=== PATIENT | male | born 1980 | race Caucasian/White ===

== ENCOUNTER 2016-08-17 11:10 | Emergency (ER) | payer OTHER ==
[~2016-08-17] VITALS: Ht 188 cm; Wt 99.8 kg
[2016-08-17 11:11] VITALS: BP 140/71
[2016-08-17] MEDS ORDERED: cefTRIAXone SOD 250 MG VIAL (J0696) IM ONE (12:30)
[2016-08-17] MEDS ORDERED: AZITHROMYCIN 250 MG TAB PO ONE (12:30)
[2016-08-17] MEDS ORDERED: CLIN1CAP5 PO (12:32)
== END 2016-08-17 13:11 | disposition home or self-care (01) ==
LOC: M ED 12:36
DX: K40.90 Unilateral inguinal hernia, without obstruction or gangrene, not specified as recurrent (principal); L08.9 Local infection of the skin and subcutaneous tissue, unspecified; F17.200 Nicotine dependence, unspecified, uncomplicated

== ENCOUNTER 2020-08-04 07:54 | Emergency (ER) | payer OTHER ==
[~2020-08-04] VITALS: Ht 188 cm; Wt 102.6 kg
[~2020-08-04 07:54] MED LIST: CLIN150C15 PO
[2020-08-04 08:01] VITALS: BP 133/68
== END 2020-08-04 09:57 | disposition left against medical advice (07) ==
LOC: M ED 07:54
DX: Z53.21 Procedure and treatment not carried out due to patient leaving prior to being seen by health care provider (principal)

== ENCOUNTER 2021-11-17 12:38 | Emergency (ER) | payer OTHER ==
[~2021-11-17] VITALS: Ht 188 cm; Wt 108.7 kg
[~2021-11-17 12:38] MED LIST changes: -CLIN150C15 PO; +CLIN150C17 PO
[2021-11-17 12:39] VITALS: BP 117/68
== END 2021-11-17 15:30 | disposition left against medical advice (07) ==
LOC: M ED 12:38
DX: Z53.29 Procedure and treatment not carried out because of patient's decision for other reasons (principal)

== ENCOUNTER 2021-11-28 14:34 | Emergency (ER) | payer OTHER ==
[~2021-11-28] VITALS: Ht 188 cm; Wt 107.3 kg
[2021-11-28 14:35] VITALS: BP 127/77
== END 2021-11-28 22:39 | disposition home or self-care (01) ==
LOC: M ED 14:34
DX: S63.602A Unspecified sprain of left thumb, initial encounter (principal); S60.012A Contusion of left thumb without damage to nail, initial encounter; W01.0XXA Fall on same level from slipping, tripping and stumbling without subsequent striking against object, initial encounter; Y92.830 Public park as the place of occurrence of the external cause; F17.200 Nicotine dependence, unspecified, uncomplicated

== ENCOUNTER → 2023-04-04 | Outpatient (CLI) | payer OTHER | LOC: M WUC 12:23 | PROVIDERS: ATTEND Nurse Practitioner Family | DX: M54.50 Low back pain, unspecified (principal) ==

== ENCOUNTER 2024-11-17 13:29 | Observation (INO) | payer OTHER ==
[~2024-11-17] VITALS: Ht 188 cm; Wt 105.0 kg
[2024-11-17] MEDS ORDERED: ISOVUE-370 76% 100 ML VIAL As Ordered ONE (13:49)
[2024-11-17 13:52] LABS: VENOUS BASE EXCESS -0.9 (-2.0-2.0); VENOUS HCO3 21.9 MMOL/L (23.0-27.0); VENOUS O2 SATURATION 96.0 % (60.0-80.0); VENOUS PARTIAL PRESSURE CO2 32.1 mmHg (38.0-50.0); VENOUS PARTIAL PRESSURE O2 73.0 mmHg (30.0-50.0); VENOUS PH 7.452 UNITS (7.330-7.430); VENOUS STANDARD HCO3 23.7 MMOL/L; VENOUS TOTAL CO2 22.9 MMOL/L (24.0-28.0)
[2024-11-17 13:59] LABS: BASO # 0.1 10^3/uL (0.0-0.2); BASO % 0.5 % (0.0-1.0); EOS # 0.0 10^3/uL (0.0-0.5); EOS % 0.2 % (0.0-3.0); LYMPH # 1.4 10^3/uL (1.5-5.0); LYMPH % 12.2 % (24.0-44.0); MONO # 0.5 10^3/uL (0.0-0.8); MONO % 4.7 % (2.0-8.0); NEUTROPHILS # 9.1 10^3/uL (1.5-8.5); NEUTROPHILS % 82.0 % (36.0-66.0); PLATELET COUNT, AUTOMATED 192 10^3/uL (150-450)
[2024-11-17 14:28] LABS: CK-MB VALUE MASS 3.0 NG/ML (<3.6); ETHYL ALCOHOL (ETHANOL) < 0.003 % (0.000-0.010)
[2024-11-17 14:30] LABS: ALT/SGPT 34 U/L (7.0-40); AST/SGOT 30 U/L (<34); CALCIUM LEVEL 10.2 MG/DL (8.5-10.1); CARBON DIOXIDE LEVEL 21 MMOL/L (20-31); CHLORIDE LEVEL 108 MMOL/L (98-107); CREATININE FOR GFR 1.26 MG/DL (0.70-1.30); GLOMERULAR FILTRATION RATE 73.5 (>60); MAGNESIUM LEVEL 2.2 MG/DL (1.8-2.4); POTASSIUM SERUM 5.0 MMOL/L (3.5-5.1); SODIUM LEVEL 141 MMOL/L (136-145)
[2024-11-17 14:32] LABS: CPK CREATINE PHOSPHOKINASE 235 U/L (46-171); MB/CK RELATIVE INDEX 1.27 (< OR =4)
[2024-11-17 15:06] LABS: APPEARANCE, URINE CLEAR (CLEAR); BACTERIA, URINE AUTO NEGATIVE (NEGATIVE); BILIRUBIN, URINE AUTO NEGATIVE (NEGATIVE); BLOOD, URINE BLOOD NEGATIVE (NEGATIVE); GLUCOSE, URINE (UA) AUTO 1+ mg/dL (NEGATIVE); KETONE, URINE AUTO NEGATIVE (NEGATIVE); LEUKOCYTE ESTERASE, URINE AUTO NEGATIVE (NEGATIVE); MUCUS, URINE SMALL (NEGATIVE); NITRITE, URINE AUTO NEGATIVE (NEGATIVE); PROTEIN, URINE AUTO 1+ mg/dL (NEGATIVE); RBC, URINE AUTO 2 /HPF (0-3); SPECIFIC GRAVITY URINE AUTO 1.049 (1.002-1.035); SQUAMOUS EPITHELIAL CELL UR AU 0 /HPF (0-6); TRANSITIONAL EPITHELIAL AUTO <1 /HPF; UROBILINOGEN, URINE AUTO 0.2 mg/dL (0.0-2.0); WBC, URINE AUTO 1 /HPF (0-3)
[2024-11-17 15:13] LABS: PHENCYCLIDINE URINE NEGATIVE (NEGATIVE)
[2024-11-17 15:14] LABS: AMPHETAMINES LEVEL URINE NEGATIVE (NEGATIVE); BARBITURATES URINE NEGATIVE (NEGATIVE); BENZODIAZEPINES URINE NEGATIVE (NEGATIVE); COCAINE METABOLITE URINE NEGATIVE (NEGATIVE); METHADONE URINE NEGATIVE (NEGATIVE); OPIATES URINE NEGATIVE (NEGATIVE)
[2024-11-17 15:17] LABS: CANNABINOIDS URINE POSITIVE (NEGATIVE)
[2024-11-17] MEDS: NS (Normal Saline) 0.9% 1,000 ML IV ONE (15:17)
[2024-11-17] MEDS: MORPHINE 2 MG/ML 1 ML VIAL IV PRN (15:17)
[2024-11-17] MEDS: ONDANSETRON 4MG 2ML VIAL IV ONE (15:49)
[2024-11-17 16:07] LABS: CK-MB VALUE MASS 2.7 NG/ML (<3.6)
[2024-11-17 16:12] LABS: CPK CREATINE PHOSPHOKINASE 249.0 U/L (46-171); MB/CK RELATIVE INDEX 1.08 (< OR =4)
[2024-11-17 17:43] LABS: CK-MB VALUE MASS 2.9 NG/ML (<3.6)
[2024-11-17 17:46] LABS: CPK CREATINE PHOSPHOKINASE 292.0 U/L (46-171); MB/CK RELATIVE INDEX 0.99 (< OR =4)
[2024-11-17] MEDS: VALPROATE SOD INJ 500 MG in D5W 50 ML IV ONE (19:03)
[2024-11-17] MEDS: NICOTINE 21 MG/24 HR 1 EA TRANSDERMAL TD ONE (19:23)
[2024-11-17] MEDS ORDERED: HOME MED LIST COMPLETE! XX SCH (20:30)
[2024-11-17] MEDS ORDERED: NICOTINE POLACRILEX 2 MG GUM PO PRN (20:40)
[2024-11-17 20:54] VITALS: BP 141/69; TEMP 98.9; O2SAT 97
[2024-11-17] MEDS: INSULIN LISPRO (NovoLOG) PER UNIT SC SCH (21:00)
[2024-11-17] MEDS ORDERED: GLUCOSE 4 GM CHEW PO PRN (21:05)
[2024-11-17] MEDS ORDERED: GLUCAGON INJ 1 MG VIAL SC PRN (21:05)
[2024-11-17] MEDS ORDERED: DEXTROSE 50% 50 ML SYRINGE IV PRN (21:05)
[2024-11-17 21:11] LABS: CHOLESTEROL LEVEL 110.0 MG/DL (<200); CHOLESTEROL RISK RATIO 2.59 (<5); LDL CHOLESTEROL 54.2 MG/DL (<100); NON-HDL-C 67.6 MG/DL; TRIGLYCERIDES LEVEL 67.0 MG/DL (<150)
[2024-11-17 21:33] LABS: ESTIMATED AVERAGE GLUCOSE 105.0 MG/DL (60-110)
[2024-11-17 21:37] LABS: CREATININE, URINE 182.3 MG/DL; MALB URINE SIEMENS 83.0 MG/L; MAU/CREAT RATIO 45.5 MCG/MG (0.0-30.0)
[2024-11-17] MEDS: LR 1,000 ML IV SCH (21:47)
[2024-11-17] MEDS: ACETAMINOPHEN 325 MG TAB PO PRN (22:12)
[2024-11-17] MEDS: VALPROIC ACID 250MG CAP PO SCH (22:23)
[2024-11-18] VITALS: BP 117/53; TEMP 99.1; O2SAT 95
[2024-11-18 04:00] VITALS: BP 108/57; TEMP 98.4; O2SAT 96
[2024-11-18 07:29] LABS: PLATELET COUNT, AUTOMATED 147 10^3/uL (150-450)
[2024-11-18] MEDS ORDERED: INSULIN LISPRO (NovoLOG) PER UNIT SC SCH (07:30)
[2024-11-18 07:54] VITALS: BP 114/65; TEMP 98.4; O2SAT 95
[2024-11-18 07:55] LABS: ALT/SGPT 28.0 U/L (7.0-40); AST/SGOT 34.0 U/L (<34); CALCIUM LEVEL 8.6 MG/DL (8.5-10.1); CARBON DIOXIDE LEVEL 26.0 MMOL/L (20-31); CHLORIDE LEVEL 110.0 MMOL/L (98-107); CREATININE FOR GFR 1.13 MG/DL (0.70-1.30); GLOMERULAR FILTRATION RATE 83.7 (>60); POTASSIUM SERUM 3.9 MMOL/L (3.5-5.1); SODIUM LEVEL 144.0 MMOL/L (136-145)
[2024-11-18] MEDS: NICOTINE 21 MG/24 HR 1 EA TRANSDERMAL TD SCH (09:14)
[2024-11-18] MEDS: HEPARIN SOD 5000 UNITS/ML 1 ML VIAL/SYRINGE SC SCH (09:14)
[2024-11-18] MEDS ORDERED: VALP1CAP2 PO (11:51)
[2024-11-22 08:17] LABS: METANEPHRINE PLASMA 33 pg/mL (<=57); NORMETANEPHRINE PLASMA 41 pg/mL (<=148); TOTAL FREE 74 pg/mL (<=205)
== END 2024-11-18 12:47 | disposition home or self-care (01) ==
LOC: M ED 13:29 → EDBD 13:29 → M ED INP 13:30 → M MS4PR 20:50
PROVIDERS: ADMIT Student in an Organized Health Care Education/Training Program; ATTEND Student in an Organized Health Care Education/Training Program
DX: S90.511A Abrasion, right ankle, initial encounter (principal); V47.5XXA Car driver injured in collision with fixed or stationary object in traffic accident, initial encounter; Y92.410 Unspecified street and highway as the place of occurrence of the external cause; R74.02 Elevation of levels of lactic acid dehydrogenase [LDH]; R74.8 Abnormal levels of other serum enzymes; R25.8 Other abnormal involuntary movements; F17.210 Nicotine dependence, cigarettes, uncomplicated; I10 Essential (primary) hypertension; R73.01 Impaired fasting glucose; R79.89 Other specified abnormal findings of blood chemistry; D72.829 Elevated white blood cell count, unspecified
CPT/HCPCS: 36415; 70450; 70551; 71045; 71275; 72125; 74177; 80047; 80048; 80053; 80061; 80076; 80307; 81001; 82043; 82077; 82330; 82550; 82553; 82803; 83036; 83605; 83690; 83735; 83835; 84443; 84484; 85025; 85027; 93005; 93041; 94760; 96361; 96365; 96372; 96375; 99285; J2405; Q9967

== ENCOUNTER 2024-11-27 17:28 | Emergency (ER) | payer OTHER ==
[~2024-11-27] VITALS: Ht 188 cm; Wt 105.1 kg
[~2024-11-27 17:28] MED LIST changes: +VALP1CAP2 PO
[2024-11-27 19:44] VITALS: BP 150/81; TEMP 98.3; O2SAT 98
[2024-11-27] MEDS ORDERED: VALP1CAP2 PO (20:50)
[2024-11-27] MEDS: DIVALPROEX 500 MG TAB PO ONE (20:58)
== END 2024-11-27 20:59 | disposition home or self-care (01) ==
LOC: M ED 17:28
DX: Z76.0 Encounter for issue of repeat prescription (principal); G40.909 Epilepsy, unspecified, not intractable, without status epilepticus; F17.210 Nicotine dependence, cigarettes, uncomplicated; F19.10 Other psychoactive substance abuse, uncomplicated; Z79.899 Other long term (current) drug therapy

== ENCOUNTER → 2024-12-12 | Outpatient (CLI) | payer OTHER ==
[2024-12-12 12:51] LABS: BASO # 0.0 10^3/uL (0.0-0.2); BASO % 0.7 % (0.0-1.0); EOS # 0.1 10^3/uL (0.0-0.5); EOS % 1.9 % (0.0-3.0); LYMPH # 1.8 10^3/uL (1.5-5.0); LYMPH % 31.3 % (24.0-44.0); MONO # 0.4 10^3/uL (0.0-0.8); MONO % 7.5 % (2.0-8.0); NEUTROPHILS # 3.4 10^3/uL (1.5-8.5); NEUTROPHILS % 58.3 % (36.0-66.0); PLATELET COUNT, AUTOMATED 141 10^3/uL (150-450)
[2024-12-12 13:21] LABS: VALPROIC ACID (DEPAKOTE) 73.6 UG/ML (50.0-100.0)
[2024-12-12 13:22] LABS: ALT/SGPT 39.0 U/L (7.0-40); AST/SGOT 27.0 U/L (<34); CALCIUM LEVEL 9.0 MG/DL (8.5-10.1); CARBON DIOXIDE LEVEL 31.0 MMOL/L (20-31); CHLORIDE LEVEL 105.0 MMOL/L (98-107); CREATININE FOR GFR 1.07 MG/DL (0.70-1.30); GLOMERULAR FILTRATION RATE 89.4 (>60); POTASSIUM SERUM 4.5 MMOL/L (3.5-5.1); SODIUM LEVEL 142.0 MMOL/L (136-145)
== END ==
LOC: M LAB 11:16
PROVIDERS: ATTEND Psychiatry & Neurology Neurology
DX: G40.89 Other seizures (principal)

== ENCOUNTER → 2025-01-14 | Outpatient (REF) | payer OTHER ==
[2025-01-14 14:16] LABS: CHOLESTEROL LEVEL 142.0 MG/DL (<200); CHOLESTEROL RISK RATIO 2.89 (<5); LDL CHOLESTEROL 77.2 MG/DL (<100); NON-HDL-C 93.0 MG/DL; TRIGLYCERIDES LEVEL 79.0 MG/DL (<150)
[2025-01-14 14:20] LABS: ESTIMATED AVERAGE GLUCOSE 114.0 MG/DL (60-110)
== END ==
LOC: M LAB REF 12:19
PROVIDERS: ATTEND Student in an Organized Health Care Education/Training Program
DX: Z68.32 Body mass index [BMI] 32.0-32.9, adult (principal)

== ENCOUNTER → 2025-02-04 | Outpatient (CLI) | payer OTHER | LOC: M WUC 12:53 | PROVIDERS: ATTEND Student in an Organized Health Care Education/Training Program | DX: M25.571 Pain in right ankle and joints of right foot (principal); G89.29 Other chronic pain ==